=== PATIENT | female | born 1960 | race Caucasian/White ===

== ENCOUNTER 2017-02-04 08:04 | Day surgery (SDC) | payer OTHER ==
[2017-02-03 11:40] VITALS: BMI 23.6
[2017-02-04 08:36] LABS: URINE APPEARANCE SLCLOUDY; URINE BILIRUBIN NEGATIVE (NEGATIVE); URINE BLOOD NEGATIVE (NEGATIVE); URINE COLOR YELLOW; URINE GLUCOSE (UA) NEGATIVE (NEGATIVE); URINE KETONE TRACE (NEGATIVE); URINE NITRITE NEGATIVE (NEGATIVE); URINE PROTEIN NEGATIVE (NEGATIVE); URINE UROBILINOGEN NEGATIVE E.U./dl (0.2-1.0)
[2017-02-04 08:37] LABS: MCH 34.7 pg (25.7-33.7); MCHC 35.1 g/dl (32.0-36.0); MEAN PLT VOLUME 8.6 fl (7.5-11.1); PLATELET COUNT 196 K/MM3 (134-434); RDW 12.9 % (11.6-15.6); WHITE BLOOD COUNT 4.4 K/mm3 (4.0-10.0)
[2017-02-04 09:02] LABS: ALBUMIN 3.8 g/dl (3.4-5.0); ANION GAP 6 (8-16); CALCIUM 8.9 mg/dL (8.5-10.1); CO2 28 mmol/L (21-32); CREATININE 0.8 mg/dL (0.55-1.02); GLUCOSE,RANDOM 84 mg/dL (74-106); SGOT/AST 21 U/L (15-37); SGPT/ALT 27 U/L (12-78)
[2017-02-04 09:04] LABS: ALK PHOS 62 U/L (45-117); BILIRUBIN,TOTAL 0.8 mg/dL (0.2-1.0); TOT PROT 6.6 g/dl (6.4-8.2)
[2017-02-04 09:13] LABS: URINE LEUK ESTERASE TRACE (NEGATIVE)
[2017-02-04 09:15] LABS: URINE MUCUS RARE; URINE RBC 1 /hpf (0-3); URINE WBC 8 /hpf (3-5)
[2017-02-04] MEDS ORDERED: LIDOCAINE HCL 1%, 10 MG/ML (20ML VIAL) ONE (11:05)
[2017-02-04] MEDS ORDERED: MIDAZOLAM HCL 2 MG/2 ML SINGLE DOSE VIAL ONE (11:19)
[2017-02-04] MEDS ORDERED: PROPOFOL 20 ML ONE ×2 (11:25)
[2017-02-04] MEDS ORDERED: ceFAZolin SODIUM 1 GM VIAL IVPB ONE (11:30)
[2017-02-04] MEDS ORDERED: ceFAZolin SODIUM 1 GM VIAL ONE (11:36)
[2017-02-04] MEDS ORDERED: DEXAMETHASONE SOD PHOSPHATE 4 MG/1 ML VIAL ONE (11:40)
[2017-02-04] MEDS ORDERED: ePHEDrine SULFATE 50 MG/1 ML AMPULE ONE (11:45)
[2017-02-04] MEDS ORDERED: ONDANSETRON 4 MG/2 ML VIAL IVPUSH PRN (12:19)
[2017-02-04] MEDS ORDERED: oxyCODONE HCL 5 MG TABLET PO PRN (12:19)
[2017-02-04] MEDS ORDERED: LACTATED RINGERS SOLUTION 1,000 ML IV SCH (12:30)
[2017-02-04 13:13] VITALS: TEMP 97.5
--- NOTE | 2017-02-04 14:26 | OP ---
DATE OF OPERATION: 02/04/2017 PREOPERATIVE DIAGNOSIS: Left breast atypical duct hyperplasia. POSTOPERATIVE DIAGNOSIS: Left breast atypical duct hyperplasia. PROCEDURE: Left breast wide localized lumpectomy. SURGEON: Karoline Martínez MD ANESTHESIA: General. ESTIMATED BLOOD LOSS: Minimal. COMPLICATIONS: None. This was a sterile procedure. INDICATION FOR PROCEDURE: After a biopsy of the left breast that showed an atypical duct hyperplasia, my recommendation was excision of the area to make sure there was no further upgrade in the lesion. The procedure was discussed with her as a wide localized lumpectomy. PROCEDURE IN DETAIL: The patient was brought to [facility] and taken to breast imaging where a wire was used to localize the clip in the upper left breast by the radiologist and then brought to the operating room. After induction of general anesthesia and IV antibiotics, the left breast was prepped and draped in the usual sterile fashion. The area in the upper left breast was anesthetized with 1% lidocaine without epinephrine. A curvilinear incision was made in the left breast 12 o'clock to 1 o'clock location. A wire was used as a guide to get down to the area, and tissue was excised en bloc, tagged with a long stitch lateral, short stitch superior. Sent as a left breast lumpectomy for a specimen radiograph. Hemostasis was assured with electrocautery. The parenchyma was approximated with interrupted 2-0 Vicryl, skin approximated with interrupted 3-0 Vicryl and running 4-0 Prolene. A sterile dressing with Tegaderm and 4x4 was applied. The specimen radiograph showed the clip to be within the specimen. The wire had fallen out at the time of lumpectomy and was given to the nurse. She tolerated the procedure well, was extubated on the operating room table, and taken to recovery in good condition. KAROLINE MARTÍNEZ M.D. [id number]
[2017-02-04 14:34] VITALS: BP 121/74; PULSE 79
--- NOTE | 2017-02-08 14:36 | PATH ---
Surgical Pathology Report Patient Name: ALEJANDRA ERICKSON [facility]. Rec. #: [id number] /Age/Gender: 1960 (Age: 56) / F Account: [id number] Location: AMBULATORY SURG Taken: 02/04/2017 Received: 02/04/2017 Reported: 02/08/2017 Physicians: Karoline Larios M.D. Specimen(s) Received LEFT BREAST LUMPECTOMY Clinical History Atypia Final Diagnosis BREAST, LEFT, LUMPECTOMY: NO RESIDUAL ATYPIA IDENTIFIED. PRIOR BIOPSY SITE PRESENT. BACKGROUND FIBROCYSTIC CHANGE FOCAL ADENOSIS, DUCT DILATATION, CYST FORMATION, STROMAL FIBROSIS AND FOCAL ASSOCIATED MICROCALCIFICATIONS. Electronically Signed Arslan Klein M.D. Gross Description Received fresh on an AccuGrid, labeled "left breast lumpectomy" is a 4.5 x 4.2 x 1.8 cm. burris-yellow, irregular, portion of fibroadipose tissue . There is a short suture marking the superior aspect and a long suture marking the lateral aspect, per surgeon. There is no skin or nipple present. The specimen is inked as follows: superior and lateral blue; inferior green; medial yellow; anterior red; deep black. The specimen is serially sectioned from superior to inferior. Sectioning reveals a focus of hemorrhage surrounded by fibrous tissue, consistent with a previous biopsy site. No definitive mass is identified. Sterilisation Technician sections are submitted in 10 cassettes as follows: 1-superior margin; 2-7-fibrous tissue sequentially submitted from superior to inferior (each section displays lateral and medial margins); 8-inferior margin; 9-anterior margin; 10-deep margin. Time to formalin fixation: Approximately 1 hour Total formalin fixation time: Approximately 9 hours. 02/04/[address] [facility]02/04/2017
== END 2017-02-04 14:36 | disposition home or self-care (01) ==
LOC: JASUSAT 08:04
PROVIDERS: ATTEND Surgery
PROC: 0HBU0ZZ Excision of Left Breast, Open Approach (ICD-10-PCS; principal; 2017-02-04 11:00)
DX: N60.92 Unspecified benign mammary dysplasia of left breast (principal)
CPT/HCPCS: 19281; 36415; 80053; 81003; 81015; 84703; 85027; 88307-TC; 94760

== ENCOUNTER 2024-04-06 04:23 | Day surgery (SDC) | payer OTHER ==
[2024-04-02 14:17] VITALS: BMI 31.6
[2024-04-06 08:38] VITALS: TEMP 97.3
[2024-04-06 09:05] VITALS: RESP 18
[2024-04-06 09:18] VITALS: BP 115/77; PULSE 73
== END 2024-04-06 09:16 | disposition home or self-care (01) ==
LOC: JASU-ENDO 04:23
PROVIDERS: ATTEND Student in an Organized Health Care Education/Training Program
PROC: 0DBL8ZX Excision of Transverse Colon, Via Natural or Artificial Opening Endoscopic, Diagnostic (ICD-10-PCS; 2024-04-06)
PROC: 0DBP8ZX Excision of Rectum, Via Natural or Artificial Opening Endoscopic, Diagnostic (ICD-10-PCS; 2024-04-06)
PROC: 0DBM8ZX Excision of Descending Colon, Via Natural or Artificial Opening Endoscopic, Diagnostic (ICD-10-PCS; principal; 2024-04-06 08:00)
DX: Z12.11 Encounter for screening for malignant neoplasm of colon (principal); D12.3 Benign neoplasm of transverse colon; D12.4 Benign neoplasm of descending colon; D12.8 Benign neoplasm of rectum; K64.4 Residual hemorrhoidal skin tags; K57.30 Diverticulosis of large intestine without perforation or abscess without bleeding; I10 Essential (primary) hypertension
CPT/HCPCS: 88305-TC